=== PATIENT | male | born 1975 ===

== ENCOUNTER → 2021-09-23 | Outpatient (CLI) | payer BC | LOC: LAB 16:15 → LAB SHORT 16:15 | DX: J30.9 Allergic rhinitis, unspecified (principal) | CPT/HCPCS: 87081 ==

== ENCOUNTER → 2023-03-06 | Outpatient (CLI) | payer BC, OTHER ==
[2023-03-08 01:10] LABS: CHLAMYDIA TRACHOMATIS, NAA Negative (Negative)
== END | disposition home or self-care (01) ==
LOC: LAB SHORT 16:59 → LAB 16:59
PROVIDERS: Physician Assistant
DX: Z72.51 High risk heterosexual behavior (principal)
CPT/HCPCS: 87070; 87205; 87491; 87591